=== PATIENT | male | born 1965 | race Hispanic/Latino ===

== ENCOUNTER 2018-12-10 12:21 | Inpatient (IN) | payer OTHER ==
--- NOTE | 2018-12-10 13:14 | ED PDOC ---
Arrival/HPI - General Chief Complaint: Chest Pain Historian: Patient, Spouse - History of Present Illness Narrative History of Present Illness (Text): 12/10/18 12:50 53 year old male, with no significant medical history, presents to the emergency department complaining of chest pain for the past 2 weeks associated with shortness of breath and back discomfort that began 2 days ago. Patient describes the chest discomfort as a pressure-like sensation and worsens with movement and laying down. 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 Patient believed he had a cold and admits that he took over the counter cold medication and Avelox with slight relief. He is a pack a day smoker and denies any family history of heart attacks. Patient denies any fever, chills, vomiting, diarrhea, neck pain, leg pain, headache, dizziness, or any other complaints. PMD: Dr. Bergman Time/Duration: Other (2 weeks) Symptom Onset: Gradual Symptom Course: Unchanged Activities at Onset: Light Context: Home, Work Past Medical History - Provider Review Nursing Documentation Reviewed: Yes - Infectious Disease Hx of Infectious Diseases: None - Tetanus Immunization Tetanus Immunization: Unknown - Past Medical History Past Medical History: No Previous - Cardiac Hx Cardiac Disorders: No - Neurological Hx Neurological Disorder: No - Psychiatric Hx Depression: No Hx Emotional Abuse: No Hx Physical Abuse: No Hx Substance Use: Yes (cocaine) - Anesthesia Hx Anesthesia Reactions: No - Suicidal Assessment Feels Threatened In Home Enviroment: No Family/Social History - Physician Review Nursing Documentation Reviewed: Yes Family/Social History: No Known Family HX. denies: CAD/MT Smoking Status: Unknown If Ever Smoked Hx Alcohol Use: Yes Hx Substance Use: Yes (cocaine) Hx Substance Use Treatment: No Allergies/Home Meds Allergies/Adverse Reactions: Allergies No Known Allergies Allergy (Verified 11/20/13 16:36) Home Medications: Home Meds Medication Instructions Recorded Confirmed Aspirin [Ecotrin] 81 mg PO DAILY 12/12/18 12/12/18 Atorvastatin [Lipitor] 40 mg PO DIN 12/12/18 12/12/18 Clopidogrel [Plavix] 75 mg PO DAILY 12/12/18 12/12/18 Metoprolol Succinate XL [Toprol XL] 25 mg PO DAILY 12/12/18 12/12/18 Nicotine 21 mg/24 hr 21 mg TD DAILY 12/12/18 12/12/18 Review of Systems - Physician Review All systems were reviewed & negative as marked: Yes - Review of Systems Constitutional: Other (chills). absent: Fevers Respiratory: SOB Cardiovascular: Chest Pain Gastrointestinal: absent: Diarrhea, Nausea, Vomiting Genitourinary Male: absent: Dysuria, Frequency, Hematuria Musculoskeletal: Back Pain. absent: Neck Pain, Other (leg swelling) Neurological: absent: Headache, Dizziness Physical Exam Vital Signs Reviewed: Yes Vital Signs Temp Pulse Resp BP Pulse Ox 12/10/18 12:44 98.3 F 83 18 140/74 97 12/10/18 12:40 98.5 F 93 H 20 140/70 97 Temperature: Afebrile Blood Pressure: Normal Pulse: Regular Respiratory Rate: Normal Appearance: Positive for: Well-Appearing, Non-Toxic, Comfortable Pain Distress: None Mental Status: Positive for: Alert and Oriented X 3 - Systems Exam Respiratory/Chest: Present: Clear to Auscultation (bilaterally). No: Wheezes, Rales, Rhonchi Cardiovascular: Present: Regular Rate and Rhythm, Normal S1, S2. No: Murmurs, Rub, Gallop Abdomen: Present: Other (soft). No: Tenderness, Distention, Guarding Back: Present: Midline Tenderness (to palpation of upper thoracic region) Neurological: Present: GCS=15, CN II-XII Intact, Speech Normal Psychiatric: Present: Alert, Oriented x 3, Normal Insight, Normal Concentration Medical Decision Making ED Course and Treatment: 12/10/18 12:50 Impression: 53 year old male presents complaining of chest pressure for the past 2 weeks associated with shortness of breath and back discomfort that began 2 days ago. Differential Diagnosis included but are not limited to: --ACS --PE -- Plan: -- Labs -- CXR -- Toradol -- UA -- EKG -- ASA --SL NTG --IV Nitro --Integrellin --Cadiology consult --Heparin IV drip -- Reassess and disposition Prior Visits: Notes and results from pervious visits were reviewed. Progress Notes: 12/10/18 14:02 Lab alerted nurse to critically elevated troponin of 10.7. Call placed to Dr. Miranda(cardiology) and Dr. Bergman(PCP). 12/10/18 14:[address] Miranda who requests IV nitroglycerin after 2 SL NTG tabs, Plavix, and heparin IV initiated. Orders placed. Nurse alerted to orders and attempting to obtain from [facility]. 12/10/18 14:[address] Bergman(PCP) who accepts patient onto her service. 12/10/18 14:[address] Miranda who states patient should be given 2 SL NTG as well as IV nitroglycerin. Second EKG ordered. 12/10/18 14:22 [facility] called. Second EKG reviewed shows evolution of ST depressions worsening in Leads II, III, avF with ST elevations in V1 &V2. Call placed to Dr. Venegas(cardiac cath). 12/10/18 14:[address] Venegas who requests EKG for review. He states he will call back with confirmation. 12/10/18 14:45 Dr. Venegas calls back stating he spoke with Dr. Miranda who is on his way back to the hospital. Spoke to Dr. Miranda who requests IV nitroglycerin as well as Integrellin bolus and drip. He is on his way to the hospital. Plan communicated to the nurse. Patient updated on plan for emergent cardiac cath and is in agreement. 12/13/18 21:20 - Lab Interpretations Lab Results: 12/10/18 13:07 12/10/18 13:07 Lab Results 12/10/18 13:07: Sodium 138, Potassium 3.9, Chloride 107, Carbon Dioxide 24, Anion Gap 11, BUN 12, Creatinine 0.8, Est GFR ( Amer) > 60, Est GFR (Non- Af Amer) > 60, Random Glucose 142 H, Calcium 9.3, Magnesium 1.8, Total Bilirubin 0.8, AST 93 H, ALT 48, Alkaline Phosphatase 83, Troponin I 10.70 H* D, NT-Pro-B Natriuret Pep 1020 H, Total Protein 7.3, Albumin 4.2, Globulin 3.1, Albumin/Globulin Ratio 1.4 12/10/18 13:07: PT 10.7, INR 0.95, APTT 28.4, D-Dimer, Quantitative < 200 12/10/18 13:07: WBC 8.9, RBC 5.15, Hgb 16.6, Hct 46.3, MCV 89.9, MCH 32.2, MCHC 35.9, RDW 13.3, Plt Count 222, MPV 9.6, Neut % (Auto) 74.7 H, Lymph % (Auto) 15.0 L, Riley % (Auto) 8.6 H, Eos % (Auto) 1.5, Baso % (Auto) 0.2, Lymph # (Auto) 1.3, Riley # (Auto) 0.8 H, Eos # (Auto) 0.1, Baso # (Auto) 0.02, Absolute Neuts (auto) 6.62 H I have reviewed the lab results: Yes - RAD Interpretation Narrative RAD Interpretations (Text): PROCEDURE: CXR Dictated Date/Time: 12/10/18 1318 Signed By: Kevin Michaels DO Impression: No active disease. Questionable small left apical nodule Radiology Orders: 12/10/18 12:53 CHEST PORTABLE [RAD] Stat Cut Out Machine Operator: Radiologist - EKG Interpretation EKG Interpretation (Text): 12/10/18 12:24 EKG shows NSR at [address] elevation, 0.5 ST depression seen in inferior and lateral leads. Interpreted by me. Interpreted by ED Physician: Yes Type: 12 lead EKG - Medication Orders Current Medication Orders: Discontinued Medications Ketorolac Tromethamine (Toradol) 30 mg IVP STAT STA Stop: 12/10/18 12:57 - Scribe Statement The provider has reviewed the documentation as recorded by the Devon Tabor Provider Scribe Attestation: All medical record entries made by the Nikkiibmikhail were at my direction and personally dictated by me. I have reviewed the chart and agree that the record accurately reflects my personal performance of the history, physical exam, medical decision making, and the department course for this patient. I have also personally directed, reviewed, and agree with the discharge instructions and disposition. Disposition/Present on Arrival - Present on Arrival Any Indicators Present on Arrival: No History of DVT/PE: No History of Uncontrolled Diabetes: No Urinary Catheter: No History of Decub. Ulcer: No History Surgical Site Infection Following: None - Disposition Have Diagnosis and Disposition been Completed?: Yes Diagnosis: Myocardial infarction Disposition: HOSPITALIZED Disposition Time: 14:34 Patient Plan: Admission Condition: CRITICAL
[2018-12-10 13:15] LABS: BASO # 0.02 K/mm3 (0.0-2.0); BASO % 0.2 % (0.0-3.0); EOS # 0.1 (0.0-0.7); EOS % 1.5 % (1.5-5.0); HEMOGLOBIN 16.6 g/dL (14.0-18.0); LYMPH # 1.3 (1.2-3.4); MEAN CELL VOLUME 89.9 fl (80.0-105.0); MEAN CORPUSCULAR HEMOGLOBIN 32.2 pg (25.0-35.0); MEAN CORPUSCULAR HGB CONC 35.9 g/dl (31.0-37.0); MEAN PLATELET VOLUME 9.6 fl (7.0-11.0); MONO # 0.8 (0.1-0.6); MONO % 8.6 % (1.0-6.0); RBC 5.15 10^6/uL (3.5-6.1); RED CELL DISTRIBUTION WIDTH 13.3 % (11.5-14.5); WHITE BLOOD COUNT 8.9 10^3/uL (4.5-11.0)
--- NOTE | 2018-12-10 13:21 | RAD ---
Date of service: 12/10/2018 HISTORY: chest pain COMPARISON: No prior. FINDINGS: LUNGS: No active pulmonary disease. Questionable small on left apical nodule. PLEURA: No significant pleural effusion identified, no pneumothorax apparent. CARDIOVASCULAR: No aortic atherosclerotic calcification present. Normal cardiac size. No pulmonary vascular congestion. OSSEOUS STRUCTURES: Mild multilevel degenerative spondylosis of the thoracic spine. VISUALIZED UPPER ABDOMEN: Normal. OTHER FINDINGS: None. IMPRESSION: No active disease. Questionable small left apical nodule
[2018-12-10 13:24] LABS: ALB/GLOB RATIO 1.4 (1.1-1.8); ALBUMIN 4.2 g/dL (3.0-4.8); ALT/SGPT 48 U/L (7-56); AST/SGOT 93 U/L (17-59); BLOOD UREA NITROGEN 12 mg/dL (7-21); CALCIUM 9.3 mg/dL (8.4-10.5); GFR NON-AFRICAN AMERICAN > 60
[2018-12-10 13:39] LABS: INR 0.95; PARTIAL THROMBOPLASTIN TIME 28.4 Seconds (26.9-38.3); PROTHROMBIN TIME 10.7 SECONDS (9.4-12.5)
[2018-12-10] MEDS ORDERED: DiphenhydrAMINE 50 mg/ml Inj IVP STA ×2 (13:39→14:37)
[2018-12-10 13:40] LABS: B-TYPE NATRIURETIC PEPTIDE 1020 pg/mL (0-450)
[2018-12-10 13:46] LABS: D DIMER < 200 ng/mlDDU (0-243)
[2018-12-10 14:13] VITALS: BMI 26.7
[2018-12-10] MEDS ORDERED: Eptifibatide 0.75 mg/ml 75 MG/100 ML BOTTLE IV SCH (14:40)
[2018-12-10] MEDS ORDERED: Eptifibatide 20 mg/10mL Inj IVP STA (14:40)
[2018-12-10] MEDS ORDERED: Nitroglycerin 50mg in D5W 50 MG/250 ML BOTTLE IV ONE ×2 (14:46→14:49)
[2018-12-10] MEDS ORDERED: Eptifibatide 20 mg/10mL Inj IVP ONE ×2 (14:47→15:15)
[2018-12-10] MEDS: Eptifibatide 20 mg/10mL Inj IVP ONE ×2 (14:47→16:44)
[2018-12-10] MEDS ORDERED: Lidocaine 2% Inj (20ml) ONE (14:48)
[2018-12-10] MEDS ORDERED: Phenylephrine 10 mg/ml Inj ONE (14:48)
[2018-12-10] MEDS ORDERED: Iodixanol 320 MG/ML 200 ML BOTTLE IV ONE (14:49)
[2018-12-10] MEDS ORDERED: Midazolam 2 MG/2 ML VIAL ONE ×3 (14:49→15:49)
[2018-12-10] MEDS ORDERED: Iohexol 350mgl/ml 50 ML ONE (14:49)
--- NOTE | 2018-12-10 15:25 | CP.PCM.PN ---
<Elida Robles - Last Filed: 12/10/18 15:07> Subjective - Date & Time of Evaluation Date of Evaluation: 12/10/18 Time of Evaluation: 15:07 - Subjective Subjective: CODE HEART NOTE Code heart called in ED Rapid response team arrived to the ER immediately. 53yo male PMHx GERD, EtOh in the past [unsure of last use], cocaine abuse [last use 3-4 weeks ago], and tobacco abuse [1ppd for years; first day of trying to quit was day of presentation to the ER, patient was trying to use nicotine patch] who presented with chest pain for 4 days. Patient reports he had noticed that over the past 3-4 days he was having chest pain when walking up steps and when he would work he would have to take a break after 25-30 minutes. He also complained of some associated SOB and diaphoresis. The night prior to admission patient's symptoms worsened and he could not lie on his side as his pain was worsening and he could feel it going from the front of his chest to the back. Patient denied any palpitations or radiation of the pain to his left arm or up his jaw. Patient decided to come to the ER today as he believed his symptoms were related to a URI and that he may need antibiotics. Patient was resting comfortably in the ER and denied any complaints of headache, dizziness, chest pain, SOB, palpitations, cough, abd pain, nausea, vomiting, bowel/bladder complaints, pain/swelling in his legs b/l. Family [] at bedside. Patient had elevated troponin 10.7 in the ER. Repeat EKG showed ST depressions worsening in Leads II, III, avF with ST elevations in V1 &V2. Patient received ASA 325, Plavix 300, Heparin bolus, Integrilin bolus and gtt, and Nitro gtt. Patient was rushed to experimental machining lab manager to undergo cardiac cath with Dr. Miarnda. PMHx: GERD, EtOh in the past [unsure of last use], cocaine abuse [last use 3-4 weeks ago], and tobacco abuse [1ppd for years; first day of trying to quit was day of presentation to the ER, patient was trying to use nicotine patch] PSurgHx: none Meds: nexium ALL: NKDA SocHx: EtOh in the past [unsure of last use], cocaine abuse [last use 3-4 weeks ago], and tobacco abuse [1ppd for years; first day of trying to quit was day of presentation to the ER, patient was trying to use nicotine patch] FamHx: father with CAD, grandmother DM and breast ca, grandfather colon ca, no CVA in family. PMD: [facility] Objective - Vital Signs/Intake and Output Vital Signs (last 24 hours): Temp Pulse Resp BP Pulse Ox 98.3 F 91 H 18 121/77 97 12/10/18 14:21 12/10/18 14:21 12/10/18 14:21 12/10/18 14:21 12/10/18 14:21 - Medications Medications: Current Medications Eptifibatide (Integrilin Bolus) 7.3 mg IVP STAT STA Stop: 12/10/18 14:41 Sodium Nitroprusside 50 mg/ (Dextrose) 252 mls @ 12.07 mls/hr IV .[id number] PRN; Protocol PRN Reason: TITRATE PER MD ORDER Sodium Nitroprusside 50 mg/ (Dextrose) 252 mls @ 12.07 mls/hr IV .[id number] JAIME - Labs Labs: 12/10/18 13:07 12/10/18 13:07 PT 10.7 SECONDS (9.4-12.5) 12/10/18 13:07 INR 0.95 12/10/18 13:07 APTT 28.4 Seconds (26.9-38.3) 12/10/18 13:07 - Constitutional Appears: Non-toxic, No Acute Distress - Head Exam Head Exam: ATRAUMATIC, NORMAL INSPECTION, NORMOCEPHALIC - Eye Exam Eye Exam: EOMI, Normal appearance, PERRL. absent: Conjunctival injection, Scleral icterus - ENT Exam ENT Exam: Mucous Membranes Moist - Respiratory Exam Respiratory Exam: Clear to Ausculation Bilateral, NORMAL BREATHING PATTERN. absent: Accessory Muscle Use, Rales, Rhonchi, Wheezes, Respiratory Distress - Cardiovascular Exam Cardiovascular Exam: REGULAR RHYTHM, +S1, +S2 - GI/Abdominal Exam GI & Abdominal Exam: Soft, Normal Bowel Sounds. absent: Firm, Guarding, Rigid, Tenderness - Extremities Exam Extremities Exam: Normal Capillary Refill, Normal Inspection. absent: Pedal Edema, Tenderness - Neurological Exam Neurological Exam: Alert, Awake, Oriented x3 - Psychiatric Exam Psychiatric exam: Normal Affect, Normal Mood - Skin Skin Exam: Dry, Intact, Normal Color, Warm Assessment and Plan - Assessment and Plan (Free Text) Assessment: 53yo male PMHx GERD, EtOh in the past [unsure of last use], cocaine abuse [last use 3-4 weeks ago], and tobacco abuse [1ppd for years; first day of trying to quit was day of presentation to the ER, patient was trying to use nicotine patch] who presented with chest pain for 4 days. Patient found to have elevated troponin 10.7 and acute changes on EKG. CODE Heart called in ER and patient rushed to experimental machining lab manager. After cardiac cath patient will be transferred to CCU for further management. Discussed with Dr. Beyn Robles PGY3 <Essence Swan - Last Filed: 12/10/18 15:40> Objective - Vital Signs/Intake and Output Vital Signs (last 24 hours): Temp Pulse Resp BP Pulse Ox 98.3 F 91 H 18 121/77 97 12/10/18 14:21 12/10/18 14:21 12/10/18 14:21 12/10/18 14:21 12/10/18 14:21 - Medications Medications: Current Medications Acetaminophen (Tylenol 325mg Tab) 650 mg PO Q6H PRN PRN Reason: Fever >100.4 F Aspirin (Ecotrin) 81 mg PO DAILY JAIME Atorvastatin Calcium (Lipitor) 40 mg PO DAILY JAIME Sodium Nitroprusside 50 mg/ (Dextrose) 252 mls @ 12.07 mls/hr IV .[id number] PRN; Protocol PRN Reason: TITRATE PER MD ORDER Metoprolol Succinate (Toprol Xl) 25 mg PO BRK JAIME Ondansetron HCl (Zofran Inj) 4 mg IVP Q6H PRN PRN Reason: Nausea/Vomiting Pantoprazole Sodium (Protonix Ec Tab) 40 mg PO 0630 JAIME - Labs Labs: 12/10/18 13:07 12/10/18 13:07 PT 10.7 SECONDS (9.4-12.5) 12/10/18 13:07 INR 0.95 12/10/18 13:07 APTT 28.4 Seconds (26.9-38.3) 12/10/18 13:07 Attending/Attestation - Attestation I have personally seen and examined this patient.: Yes I have fully participated in the care of the patient.: Yes I have reviewed all pertinent clinical information, including history, physical exam and plan: Yes Notes (Text): 12/10/18 15:36 53 year old male with past medical history of GERD, alcohol use, cocaine abuse, and smoker who presents with chest pain. Found to have STEMI and taken to experimental machining lab manager. Check UDS/ETOH level. Counselled on risks of continued substance and alcohol abuse. Counselled on smoking cessation. is at bedside and questions were answered. Essence Swan MD Hospitalist.
--- NOTE | 2018-12-10 15:33 | CARD ---
APPROVED REPORT Date of service: 12/10/2018 EKG Measurement Heart [id number] <Conclusion> Normal sinus rhythm Possible Left atrial enlargement Septal infarct, age undetermined Abnormal ECG
[2018-12-10] MEDS ORDERED: Iodixanol 320 MG/ML 100 ML BOTTLE IV ONE ×3 (15:47→16:16)
[2018-12-10] MEDS ORDERED: Morphine 2 mg/ml ISec ONE (16:05)
[2018-12-10] MEDS: Sodium Chloride 0.9% 100 ML IV SCH (16:40)
--- NOTE | 2018-12-10 17:24 | CP.PCM.CON ---
<YaritzaOma elizondo - Last Filed: 12/10/18 17:27> History of Present Illness - History of Present Illness History of Present Illness: Oma Turpin, PGY-1, ICU Consult Note for Dr. Peres 53 year old male with past medical history of GERD, alcohol abuse, cocaine abuse, tobacco abuse presented with crushing, left sided chest pain with radiation to the scapula for 3 days. 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 Pain was worse with e xertion and better at rest. Patient took the next day off from work and pain recovered. Patient returned to work the following day and chest pain returned. Patient also reports shortness of breath and diaphoresis but denies nausea, vomiting, left arm pain, jaw pain, heart palpitations. Patient also reported that he believed he had a URI for 2 weeks after inhaling saw dust. Patient reports minimal nonproductive cough and no fever. Patient had elevated troponin 10.7 in the ER. Repeat EKG showed ST depressions worsening in Leads II, III, avF with ST elevations in V1 &V2. Patient received ASA 325, Plavix 300, Heparin bolus, Integrilin bolus and gtt, and Nitro gtt. Patient was rushed to laboratory immunologist to undergo cardiac cath with Dr. Miranda. Cardiac catherization showed RCA stenosis and LAD stenosis with 1 JOSEF stent placed in the RCA and 2 JOSEF placed in LAD. Patient is currently in ICU resting comfortably. Patient is resting comfortably in bed post cardiac catherization without any complaints including chest pain, shortness of breath, nausea, vomiting, left arm pain, jaw pain, diaphoresis, abdominal pain, dysuria, hematuria, swelling of legs. Ex- at bedside. PMH: as mentioned above PSH: denies Allergies: NKDA SHx: prior heavy alcohol use in the past (binge drinking episodes-unsure of last use), cocaine abuse (last 3 weeks ago), tobacco abuse (1 ppd for 30 years, last cigarette day before presentation to ER FMHx: father with triple bypass surgery, grandmother DM and breast ca, grandfather colon ca, no CVA in family. Review of Systems - Review of Systems Review of Systems: except as mentioned in HPI Past Patient History - Infectious Disease Hx of Infectious Diseases: None - Tetanus Immunizations Tetanus Immunization: Unknown - Past Social History Smoking Status: Unknown If Ever Smoked - CARDIAC Hx Cardiac Disorders: No - NEUROLOGICAL Hx Neurological Disorder: No - PSYCHIATRIC Hx Depression: No Hx Emotional Abuse: No Hx Physical Abuse: No Hx Substance Use: Yes (cocaine) - ANESTHESIA Hx Anesthesia Reactions: No Meds Allergies/Adverse Reactions: Allergies Allergy/AdvReac Type Severity Reaction Status Date / Time No Known Allergies Allergy Verified 11/20/13 16:36 - Medications Medications: Current Medications Acetaminophen (Tylenol 325mg Tab) 650 mg PO Q6H PRN PRN Reason: Fever >100.4 F Aspirin (Ecotrin) 81 mg PO DAILY [facility] Atorvastatin Calcium (Lipitor) 40 mg PO DAILY [facility] Sodium Nitroprusside 50 mg/ (Dextrose) 252 mls @ 12.07 mls/hr IV .[id number] PRN; Protocol PRN Reason: TITRATE PER MD ORDER Eptifibatide (Integrilin) 75 mg in 100 mls @ 12.773 mls/hr IV .Q7H50M [facility]; Protocol Last Admin: 12/10/18 14:48 Dose: 12.773 mls/hr Metoprolol Succinate (Toprol Xl) 25 mg PO BRK [facility] Ondansetron HCl (Zofran Inj) 4 mg IVP Q6H PRN PRN Reason: Nausea/Vomiting Pantoprazole Sodium (Protonix Ec Tab) 40 mg PO 0630 [facility] Physical Exam - Constitutional Appears: Well, Non-toxic, No Acute Distress - Head Exam Head Exam: ATRAUMATIC, NORMAL INSPECTION, NORMOCEPHALIC - Eye Exam Eye Exam: EOMI, PERRL Pupil Exam: NORMAL ACCOMODATION - ENT Exam ENT Exam: Mucous Membranes Moist - Respiratory Exam Respiratory Exam: Clear to Auscultation Bilateral, NORMAL BREATHING PATTERN - Cardiovascular Exam Cardiovascular Exam: REGULAR RHYTHM, RRR - GI/Abdominal Exam GI & Abdominal Exam: Normal Bowel Sounds, Soft. absent: Tenderness - Extremities Exam Extremities exam: Positive for: full ROM, normal inspection - Back Exam Back exam: NORMAL INSPECTION - Neurological Exam Neurological exam: Alert, CN II-XII Intact, Oriented x3 - Psychiatric Exam Psychiatric exam: Normal Affect, Normal Mood - Skin Skin Exam: Dry, Intact, Normal Color Results - Vital Signs Recent Vital Signs: Last Vital Signs Temp 98.3 F 12/10/18 14:21 Pulse 91 H 12/10/18 14:21 Resp 18 12/10/18 14:21 BP 121/77 12/10/18 14:21 Pulse Ox 97 12/10/18 14:21 - Labs Result Diagrams: 12/10/18 13:07 12/10/18 13:07 Labs: Laboratory Results - last 24 hr 12/10/18 12/10/18 12/10/18 13:07 13:07 13:07 WBC 8.9 RBC 5.15 Hgb 16.6 Hct 46.3 MCV 89.9 MCH 32.2 MCHC 35.9 RDW 13.3 Plt Count 222 MPV 9.6 Neut % (Auto) 74.7 H Lymph % (Auto) 15.0 L Sequoyah % (Auto) 8.6 H Eos % (Auto) 1.5 Baso % (Auto) 0.2 Lymph # (Auto) 1.3 Sequoyah # (Auto) 0.8 H Eos # (Auto) 0.1 Baso # (Auto) 0.02 Absolute Neuts (auto) 6.62 H PT 10.7 INR 0.95 APTT 28.4 D-Dimer, Quantitative < 200 Sodium 138 Potassium 3.9 Chloride 107 Carbon Dioxide 24 Anion Gap 11 BUN 12 Creatinine 0.8 Est GFR ( Amer) > 60 Est GFR (Non-Af Amer) > 60 Random Glucose 142 H Calcium 9.3 Magnesium 1.8 Total Bilirubin 0.8 AST 93 H ALT 48 Alkaline Phosphatase 83 Troponin I 10.70 H* D NT-Pro-B Natriuret Pep 1020 H Total Protein 7.3 Albumin 4.2 Globulin 3.1 Albumin/Globulin Ratio 1.4 Alcohol, Quantitative 12/10/18 15:51 WBC RBC Hgb Hct MCV MCH MCHC RDW Plt Count MPV Neut % (Auto) Lymph % (Auto) Sequoyah % (Auto) Eos % (Auto) Baso % (Auto) Lymph # (Auto) Sequoyah # (Auto) Eos # (Auto) Baso # (Auto) Absolute Neuts (auto) PT INR APTT D-Dimer, Quantitative Sodium Potassium Chloride Carbon Dioxide Anion Gap BUN Creatinine Est GFR ( Amer) Est GFR (Non-Af Amer) Random Glucose Calcium Magnesium Total Bilirubin AST ALT Alkaline Phosphatase Troponin I NT-Pro-B Natriuret Pep Total Protein Albumin Globulin Albumin/Globulin Ratio Alcohol, Quantitative < 10 Assessment & Plan - Assessment and Plan (Free Text) Assessment: 53 year old male with past medical history of GERD, alcohol abuse, cocaine abuse, tobacco abuse presented with ST depressions and elevated troponin upon admission. Patient was subsequently taken to the cardiac catherization lab with stenting of the RCA and LAD. Plan: Neuro: -AAOx3, no FND, moving extremities past midline. -Monitor neuro status. -Reorient patient as necessary. Cardio: NSTEMI -RRR, normotensive, no signs of HD compromise -EKG: ST depressions worsening in Leads II, III, avF with ST elevations in V1 &V2. -Follow up lipid panel results. -Patient received ASA 325, Plavix 300, Heparin bolus, Integrilin bolus prior to catherization. -Patient had 3 stents placed. 1 stent was placed in RCA and 2 stents placed in LAD. -Patient is currently on integrillin gtt at 2 mcg/kg/min started at 15:00. Stop integrillin gtt at 9:00 tomorrow morning. -Aspirin 81 mg daily, plavix 75 mg daily, lipitor 40 mg daily, metoprolol succinate 25 mg daily and NS at 100 cc/hr due to preload dependence from RCA occlusion. -Maintain MAP>65. -Monitor for S/S, HD compromise. Pulm: History of tobacco abuse -Maintain O2 saturation>90%. -O2 NC PRN -Head of bed to 30 degrees -Conservative fluid management -Maintain oral hygiene -Nicotine patch ordered GI: Diet -Cardiac catherization tray. HHD from tomorrow. GI prophylaxis -Protonix 40 mg daily /Nephro: -BUN/Cr stable -Good urine output -Follow up UDS -Continue monitoring. -Replete electrolytes as needed. -Maintain euvolemia. Endocrinology: -Random glucose: 142 -Follow up HgbA1c -Maintain euglycemia. -Follow up TSH, T4 Heme/Onc: -H/H stable at 16.6/46.3 -No signs of HD compromise. -Continue monitoring H/H DVT prophylaxis -SCD ID: -Afebrile, no leukocytosis -Monitor for signs and symptoms of infection. Patient seen and examined with Dr. Peres - Date & Time Date: 12/10/18 Time: 17:29 <Dariel Peres - Last Filed: 12/10/18 18:08> Meds - Medications Medications: Current Medications Acetaminophen (Tylenol 325mg Tab) 650 mg PO Q6H PRN PRN Reason: Fever >100.4 F Aspirin (Ecotrin) 81 mg PO DAILY [facility] Last Admin: 12/10/18 17:32 Dose: Not Given Aspirin (Aspirin Chewable) 81 mg PO DAILY [facility] Atorvastatin Calcium (Lipitor) 40 mg PO DAILY [facility] Clopidogrel Bisulfate (Plavix) 75 mg PO DAILY [facility] Sodium Nitroprusside 50 mg/ (Dextrose) 252 mls @ 12.07 mls/hr IV .[id number] PRN; Protocol PRN Reason: TITRATE PER MD ORDER Eptifibatide (Integrilin) 75 mg in 100 mls @ 12.773 mls/hr IV .Q7H50M [facility]; Protocol Last Admin: 12/10/18 14:48 Dose: 12.773 mls/hr Sodium Chloride (Sodium Chloride 0.9%) 100 mls @ 100 mls/hr IV .Q1H [facility] Metoprolol Succinate (Toprol Xl) 25 mg PO BRK [facility] Nicotine (Nicoderm Cq) 1 patch TD DAILY [facility] Ondansetron HCl (Zofran Inj) 4 mg IVP Q6H PRN PRN Reason: Nausea/Vomiting Pantoprazole Sodium (Protonix Ec Tab) 40 mg PO 0630 [facility] Zolpidem Tartrate (Ambien) 10 mg PO HS PRN; Protocol PRN Reason: Insomnia Results - Vital Signs Recent Vital Signs: Last Vital Signs Temp 98.3 F 12/10/18 14:21 Pulse 91 H 12/10/18 14:21 Resp 18 12/10/18 14:21 BP 121/77 12/10/18 14:21 Pulse Ox 97 12/10/18 14:21 - Labs Result Diagrams: 12/10/18 13:07 12/10/18 13:07 Labs: Laboratory Results - last 24 hr 12/10/18 12/10/18 12/10/18 13:07 13:07 13:07 WBC 8.9 RBC 5.15 Hgb 16.6 Hct 46.3 MCV 89.9 MCH 32.2 MCHC 35.9 RDW 13.3 Plt Count 222 MPV 9.6 Neut % (Auto) 74.7 H Lymph % (Auto) 15.0 L Sequoyah % (Auto) 8.6 H Eos % (Auto) 1.5 Baso % (Auto) 0.2 Lymph # (Auto) 1.3 Sequoyah # (Auto) 0.8 H Eos # (Auto) 0.1 Baso # (Auto) 0.02 Absolute Neuts (auto) 6.62 H PT 10.7 INR 0.95 APTT 28.4 D-Dimer, Quantitative < 200 Sodium 138 Potassium 3.9 Chloride 107 Carbon Dioxide 24 Anion Gap 11 BUN 12 Creatinine 0.8 Est GFR ( Amer) > 60 Est GFR (Non-Af Amer) > 60 Random Glucose 142 H Calcium 9.3 Magnesium 1.8 Total Bilirubin 0.8 AST 93 H ALT 48 Alkaline Phosphatase 83 Troponin I 10.70 H* D NT-Pro-B Natriuret Pep 1020 H Total Protein 7.3 Albumin 4.2 Globulin 3.1 Albumin/Globulin Ratio 1.4 Alcohol, Quantitative 12/10/18 15:51 WBC RBC Hgb Hct MCV MCH MCHC RDW Plt Count MPV Neut % (Auto) Lymph % (Auto) Sequoyah % (Auto) Eos % (Auto) Baso % (Auto) Lymph # (Auto) Sequoyah # (Auto) Eos # (Auto) Baso # (Auto) Absolute Neuts (auto) PT INR APTT D-Dimer, Quantitative Sodium Potassium Chloride Carbon Dioxide Anion Gap BUN Creatinine Est GFR ( Amer) Est GFR (Non-Af Amer) Random Glucose Calcium Magnesium Total Bilirubin AST ALT Alkaline Phosphatase Troponin I NT-Pro-B Natriuret Pep Total Protein Albumin Globulin Albumin/Globulin Ratio Alcohol, Quantitative < 10 Assessment & Plan - Assessment and Plan (Free Text) Plan: Patient seen and examined with resident, agree with note with following additions/exceptions: Patient is 53yo male with PMhx of GERD, alcohol abuse, cocaine abuse, tobacco abuse presented with ST depressions, elevated troponin, taken to laboratory immunologist, LAD stent x 2, and RCA stent. Currently afebrile, BP stable, comfortable in NAD, chest pain free. Cont with supp o2 as needed Duonebs PRN BP control NO ID issues IVF Cardiology follow up ECHO Lipid panel, TSH, HgbA1C GI ppx DVT ppx Monitor in CCU
[2018-12-10 18:10] LABS: PH,URINE 6.5 (4.7-8.0); URINE BILIRUBIN NEGATIVE (NEGATIVE); URINE BLOOD NEGATIVE (NEGATIVE); URINE GLUCOSE (UA) NEGATIVE (NEGATIVE); URINE LEUKOCYTE ESTERASE NEGATIVE Leu/uL (NEGATIVE); URINE PROTEIN NEGATIVE mg/dL (<30 mg/dL); URINE UROBILINOGEN 0.2 E.U./dL (<1 E.U./dL)
[2018-12-10 18:12] LABS: URINE APPEARANCE CLEAR (CLEAR); URINE COLOR LIGHT YELLOW (YELLOW)
[2018-12-10 18:52] LABS: BARBITURATES, UR NEGATIVE (NEGATIVE); BENZODIAZEPINES, UR POSITIVE (NEGATIVE); OPIATES, UR POSITIVE (NEGATIVE); PHENCYCLIDINE, UR NEGATIVE (NEGATIVE)
--- NOTE | 2018-12-10 21:57 | CARDCATH ---
PROCEDURE DATE: 12/10/2018 HISTORY: The patient is a 53-year-old male who presents with an acute anterior wall myocardial infarction preceded by unstable angina. His cardiac risk factors includes a heavy long history of smoking. He is on no medications and no history of bleeding. The patient was started on aspirin and Plavix, , and heparin in the emergency room and brought up to the organic lab worker. PROCEDURE: Emergency left heart catheterization with coronary arteriography, left ventriculogram, and PTCA and stent of an occluded LAD and RCA. The right femoral artery was cannulated with 6-[place] sheath. There were no complications. I performed moderate sedation which included the presence of an independent trained observer that assisted in monitoring the patient's level of consciousness and physiologic status. After administration of Versed and fentanyl, my intra service time was 1 hour. The findings on catheterization revealed right dominant circulation with diffuse atherosclerosis as well as 70% to 80% stenosis in the proximal portion. The left main artery was unremarkable. The LAD was occluded in its proximal portion. The circumflex artery was a large vessel with diffuse atherosclerosis in the circumflex system. LV function revealed a discrete and anterior wall hypokinetic area. Overall ejection fraction is 45% to 50%. The patient was given additional heparin when the ACT was 160. The final ACT was 290. The guiding catheter was placed in the ostium of the left main artery and 0.04 ATW wire was used to cross the total occlusion. A 2.0 balloon followed by 2.5 balloon was utilized to dilate the total occlusion. It was found that the entire LAD after the occlusion was diffusely diseased. A 200 mcg of IC nitroglycerin. A 2.0 balloon was brought down to the distal LAD and dilated x2. This was followed by implantation of to 2.75 drug-eluting stents, 125 mm and 118 mm placed in the proximal extending into the mid LAD. Repeat coronary artery after the balloon deflation revealed an excellent result with no residual stenosis and ANIKET III flow. The guiding catheter was then exchanged for a right guiding catheter which was placed in the ostium of the RCA. An 0.014 ATW wire was used to cross the critical lesion. A 3.5 x 8 mm drug-eluting stent was placed and deployed at 14 ounces of pressure. Repeat coronary arteriography revealed an excellent result with no residual stenosis and ANIKET III flow. Angio-Seal was used to close the femoral artery site. The patient tolerated the procedure well. In summary, the procedure was successful for an emergency PTCA and stent of an occluded LAD with drug-eluting stents. In addition, the proximal RCA stenosis was stented with a drug-eluting stent. Given these findings, the patient will need to stop smoking. He will be going to the ICU where he be on aspirin, Plavix and statin therapy. Oh Miranda MD
--- NOTE | 2018-12-10 23:42 | HP ---
DATE OF EXAM: 12/10/2018 HISTORY OF PRESENT ILLNESS: The patient is a 53-year-old white male came to emergency room with chest discomfort, going on off and on for the last two week and it was associated with some shortness of breath, chest tightness and pain radiates towards the back. 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 The patient also adds that recently he had a cold, he took some home remedies, he has some leftover antibiotic with some relief. He still cough here and there. No history of hemoptysis. No hematemesis. No recent fever or chills. No nausea, vomiting or diarrhea. ALLERGIES: HE IS NOT ALLERGIC TO ANY MEDICATION. MEDICATIONS: He does not take any medication at home. SOCIAL HISTORY: He is a construction carpenter. He is one pack smoker and he had used drugs in the past. He socially drinks. REVIEW OF SYSTEMS: Significant for chest discomfort. PHYSICAL EXAMINATION: GENERAL: He is awake, alert, oriented and able to communicate. VITAL SIGNS: He is afebrile. Pulse 71, respiration 18 and blood pressure 121/77. LUNGS: Bilateral fair airflow. No rhonchi or crackle. HEART: S1 and S2, audible. ABDOMEN: Soft and nontender. No rebound. No guarding. NEUROLOGICAL: The patient is awake, alert, oriented and able to communicate. LABORATORY DATA: WBC 8.9, hemoglobin 16, hematocrit 46 and platelets 222. PT 10.7, INR 0.95, PTT 28.4, D-dimer less than 200. Chemistry; sodium 138, potassium 3.9, chloride 107, CO2 24, BUN 12, creatinine 0.8, and blood sugar 142. LFTs are within normal limits. AST is 93 only though, troponin 10.70, BNP 1020. ASSESSMENT: 1. Acute myocardial infarction. 2. Active smoker. 3. Mild congestive heart failure. PLAN: The patient is taken to labor delivery specialist for emergent and urgent angioplasty. The patient will be admitted in ICU. He will be started on statin, beta-alvaro and anticoagulants. Dr. Miranda has been consulted for further management. Roger Bergman MD [facility] # [id number]
[2018-12-11] MEDS: Sodium Chloride 0.9% 100 ML IV SCH (05:50)
[2018-12-11] MEDS ORDERED: Pantoprazole 40 mg EC Tab PO SCH (06:30)
[2018-12-11] MEDS: Metoprolol Succinate 25 mg XL Tab PO SCH (08:28)
[2018-12-11 08:29] LABS: BASO # 0.02 K/mm3 (0.0-2.0); BASO % 0.2 % (0.0-3.0); EOS # 0.1 (0.0-0.7); EOS % 1.2 % (1.5-5.0); HEMOGLOBIN 15.3 g/dL (14.0-18.0); LYMPH # 1.7 (1.2-3.4); LYMPH % 17.8 % (22.0-35.0); MEAN CELL VOLUME 91.5 fl (80.0-105.0); MEAN CORPUSCULAR HEMOGLOBIN 31.7 pg (25.0-35.0); MEAN CORPUSCULAR HGB CONC 34.7 g/dl (31.0-37.0); MEAN PLATELET VOLUME 9.5 fl (7.0-11.0); MONO # 1.1 (0.1-0.6); MONO % 11.8 % (1.0-6.0); RBC 4.82 10^6/uL (3.5-6.1); RED CELL DISTRIBUTION WIDTH 13.5 % (11.5-14.5); WHITE BLOOD COUNT 9.4 10^3/uL (4.5-11.0)
[2018-12-11 08:46] LABS: ALB/GLOB RATIO 1.3 (1.1-1.8); ALBUMIN 3.9 g/dL (3.0-4.8); ALT/SGPT 40 U/L (7-56); AST/SGOT 65 U/L (17-59); BLOOD UREA NITROGEN 9 mg/dL (7-21); CALCIUM 9.3 mg/dL (8.4-10.5); GFR NON-AFRICAN AMERICAN > 60; HDL CHOLESTEROL 29 mg/dL (29-60)
[2018-12-11 08:56] LABS: FREE T4 0.72 ng/dL (0.78-2.19)
[2018-12-11 08:57] LABS: LDL CHOLESTEROL 107 mg/dL (0-129)
--- NOTE | 2018-12-11 11:56 | PN ---
DATE: 12/11/2018 SUBJECTIVE: The patient is chest pain free. He is out of bed just today without issues. PHYSICAL EXAMINATION: VITAL SIGNS: Blood pressure is 97/36, heart rate in the 80s. NECK: Negative JVD. LUNGS: Without rales. HEART: S1, S2. EXTREMITIES: Without edema. LABORATORY DATA: BUN and creatinine are unremarkable. The hemoglobin is 15.3. IMPRESSION: 1. Status post anterior wall myocardial infarction. 2. Coronary artery disease. 3. Status post emergency percutaneous transluminal coronary angioplasty and stent of an occluded left anterior descending and a critical lesion in the right coronary artery. 4. Chronic obstructive pulmonary disease. 5. Hypercholesterolemia. RECOMMENDATION: Given these findings, the patient should be off all IV medications. We will transfer the patient to telemetry today to ambulate. Oh Miranda MD
[2018-12-11] MEDS ORDERED: Dexmedetomidine 400mcg/100mL 400 MCG/100 ML BOTTLE ONE (12:27)
--- NOTE | 2018-12-11 16:01 | PN ---
DATE: 12/11/2018 SUBJECTIVE: The patient is 53-year-old, seen and examined, came to emergency room because of intermittent chest pain for last 4 days. The patient states he was busy at his work that increased, he has not noticed much, but yesterday pain and tightness got worse, so he came to ER, and was found to have positive troponin the patient was taken emergently to wastewater analyst lab analyst, underwent cardiac cath and had angioplasty done for LAD and he also has proximal RCA stenosis that was also stented. PHYSICAL EXAMINATION: GENERAL: On examination today, he is awake, alert, oriented and communicative. VITAL SIGNS: He is afebrile, pulse 88, respiration 24 and blood pressure 97/56. LUNGS: Bilateral fair airflow. No rhonchi or crackles. HEART: S1 and S2, audible. ABDOMEN: Soft and nontender. No rebound. No guarding. NEUROLOGIC: The patient is awake, alert, oriented and able to communicate. LABORATORY DATA: WBC 9.4, hemoglobin 15.3, hematocrit 44 and platelet 220. PT 10.7 and INR 0.95. Chemistry; sodium 140, potassium 4.5, chloride 105, CO2 of 29, BUN 9, creatinine 0.9 and blood sugar of 105. ASSESSMENT: 1. Status post anterior wall myocardial infarction. 2. Coronary artery disease, status post left anterior descending and circumflex, drug-eluting stenting. 3. Chronic obstructive pulmonary disease. 4. Active smoker. 5. Hyperlipidemia. PLAN: Currently, the patient is on aspirin 81 mg daily. He is on Lipitor. He is on Plavix, metoprolol. The patient will be transferred to [facility], and if remains stable, will be discharged in a.m. Roger Bergman MD
--- NOTE | 2018-12-11 23:48 | CARD ---
APPROVED REPORT Date of service: 12/11/2018 EKG Measurement [id number] <Conclusion> Normal sinus rhythm Anteroseptal infarct, age undetermined- possibly recent NDSTT abnormalities CCR Abnormal ECG
[2018-12-12 03:22] VITALS: O2SAT 95
[2018-12-12 07:34] LABS: BASO # 0.02 K/mm3 (0.0-2.0); BASO % 0.2 % (0.0-3.0); EOS # 0.2 (0.0-0.7); EOS % 1.6 % (1.5-5.0); HEMOGLOBIN 16.1 g/dL (14.0-18.0); LYMPH # 2.1 (1.2-3.4); LYMPH % 20.3 % (22.0-35.0); MEAN CELL VOLUME 92.2 fl (80.0-105.0); MEAN CORPUSCULAR HEMOGLOBIN 31.4 pg (25.0-35.0); MEAN PLATELET VOLUME 9.6 fl (7.0-11.0); MONO # 1.2 (0.1-0.6); MONO % 11.1 % (1.0-6.0); RBC 5.13 10^6/uL (3.5-6.1); RED CELL DISTRIBUTION WIDTH 13.4 % (11.5-14.5); WHITE BLOOD COUNT 10.4 10^3/uL (4.5-11.0)
[2018-12-12] MEDS: Metoprolol Succinate 25 mg XL Tab PO SCH (07:51)
[2018-12-12 08:15] LABS: ALB/GLOB RATIO 1.3 (1.1-1.8); ALBUMIN 4.3 g/dL (3.0-4.8); ALT/SGPT 31 U/L (7-56); AST/SGOT 45 U/L (17-59); BLOOD UREA NITROGEN 11 mg/dL (7-21); CALCIUM 9.8 mg/dL (8.4-10.5); GFR NON-AFRICAN AMERICAN > 60
--- NOTE | 2018-12-12 13:09 | PN ---
DATE: 12/12/2018 SUBJECTIVE: The patient is ambulating without symptoms. No arrhythmias on telemetry. OBJECTIVE: VITAL SIGNS: Blood pressure 106/62, heart rates in the 60s. NECK: Negative JVD. LUNGS: Without rales. HEART: Reveal S1, S2. EXTREMITIES: Without edema. LABORATORY DATA: Hemoglobin 16.1. Chemistries; BUN and creatinine unremarkable. IMPRESSION: 1. Status post anterior wall myocardial infarction. 2. Coronary artery disease. 3. Chronic obstructive pulmonary disease. 4. Hypercholesterolemia. 5. Nicotine addiction. Given these findings, the patient is hemodynamically stable. From a cardiac perspective, the patient can be discharged. I have discussed with the patient about the need to stop smoking and to be compliant with medications. We will bring him back in 1 week for a full stress test prior to allowing him to go back to work. Oh Miranda MD
[2018-12-12 13:14] VITALS: BP 135/87; PULSE 81; RESP 20; TEMP 98.4
--- NOTE | 2018-12-12 20:54 | US ---
PROCEDURE: Duplex arterial ultrasound of the right groin. HISTORY: Recent cardiac catheterization. Pain and pulsatile mass in the right groin. Evaluate for pseudoaneurysm or fistula. PHYSICIAN(S): Oh Perea MD. FINDINGS: The right common femoral artery is patent with a normal triphasic waveform. No sonographic evidence of a pseudoaneurysm or AV fistula is seen. The right superficial femoral artery and profunda femoral artery are patent proximally. The visualized venous segments the right groin are patent and compressible. IMPRESSION: 1. No sonographic evidence for pseudoaneurysm or AV fistula in the right groin.
--- NOTE | 2018-12-13 01:30 | DS ---
HISTORY OF PRESENT ILLNESS: The patient is 53 years old, who came in with chest pain, has positive troponin code was called. The patient was taken to clinical laboratory science professor underwent cardiac cath emergently and was found to have anterior wall CA and had LAD and circumflex stented, was observed in ICU, doing well, anxious to go home. No chest pain. No shortness of breath. PHYSICAL EXAMINATION: VITAL SIGNS: He is afebrile, pulse 64, respirations 19, and blood pressure 106/62. LUNGS: Bilateral fair airflow. No rhonchi or crackle. HEART: S1 and S2 audible. ABDOMEN: Soft and nontender. No rebound. No guarding. NEUROLOGIC: The patient is awake, alert, oriented, and communicative. LABORATORY DATA: WBC 10.4, hemoglobin 16, hematocrit 47, and platelet 251. Chemistry; sodium 141, potassium 4.2, chloride 103, CO2 of 31, BUN 11, creatinine 1.0, and blood sugar 108. Urinalysis is negative. Urine drug screen positive for opioids and benzodiazepines ASSESSMENT: 1. Status post anterior wall myocardial infarction, status post angioplasty, left anterior descending and circumflex. 2. Hypertension. 3. Hyperlipidemia. 4. Active smoker. PLAN: The patient is being discharged home on aspirin 81 mg daily, he is on atorvastatin 40 mg daily, nicotine patch 1 mg daily, Plavix 75 mg daily, metoprolol 625 mg at bedtime and he will have stress test done in a week. He will follow up with me in a month. Roger Bergman MD
== END 2018-12-12 14:10 | disposition home or self-care (01) | DRG 853 ==
LOC: ED 12:21 → ERH 14:56 → ICU 16:41 → 2RSO 12-12 01:55
PROVIDERS: ADMIT Internal Medicine; ATTEND Internal Medicine
PROC: 027136Z Dilation of Coronary Artery, Two Arteries with Three Drug-eluting Intraluminal Devices, Percutaneous Approach (ICD-10-PCS; principal; 2018-12-10)
PROC: 4A023N7 Measurement of Cardiac Sampling and Pressure, Left Heart, Percutaneous Approach (ICD-10-PCS; 2018-12-10)
PROC: B2111ZZ Fluoroscopy of Multiple Coronary Arteries using Low Osmolar Contrast (ICD-10-PCS; 2018-12-10)
PROC: B2151ZZ Fluoroscopy of Left Heart using Low Osmolar Contrast (ICD-10-PCS; 2018-12-10)
PROC: 3E033PZ Introduction of Platelet Inhibitor into Peripheral Vein, Percutaneous Approach (ICD-10-PCS; 2018-12-10)
DX: I21.09 ST elevation (STEMI) myocardial infarction involving other coronary artery of anterior wall (principal); I11.0 Hypertensive heart disease with heart failure; I50.9 Heart failure, unspecified; J44.9 Chronic obstructive pulmonary disease, unspecified; I25.110 Atherosclerotic heart disease of native coronary artery with unstable angina pectoris; E78.00 Pure hypercholesterolemia, unspecified; E78.5 Hyperlipidemia, unspecified; F17.200 Nicotine dependence, unspecified, uncomplicated; J06.9 Acute upper respiratory infection, unspecified; K21.9 Gastro-esophageal reflux disease without esophagitis; Y99.0 Civilian activity done for income or pay; Z79.02 Long term (current) use of antithrombotics/antiplatelets; Z79.82 Long term (current) use of aspirin; Z80.0 Family history of malignant neoplasm of digestive organs; Z80.3 Family history of malignant neoplasm of breast; Z82.49 Family history of ischemic heart disease and other diseases of the circulatory system; Z83.3 Family history of diabetes mellitus